=== PATIENT | male | born 1980 | race Caucasian/White ===

== ENCOUNTER 2019-09-24 10:46 | Emergency (ER) | payer OTHER ==
[~2019-09-24] VITALS: Ht 175.3 cm; Wt 79.4 kg
[2019-09-24 11:02] VITALS: Ht 175.3 cm; Wt 79.4 kg
[2019-09-24 13:20] VITALS: BP 115/82
== END 2019-09-24 13:20 | disposition home or self-care (01) ==
LOC: ED 10:46
DX: S29.012A Strain of muscle and tendon of back wall of thorax, initial encounter (principal); F12.20 Cannabis dependence, uncomplicated; Z91.030 Bee allergy status; X58.XXXA Exposure to other specified factors, initial encounter; Y93.89 Activity, other specified; Y92.89 Other specified places as the place of occurrence of the external cause; Y99.8 Other external cause status
CPT/HCPCS: J1100; J1885; Q0092